=== PATIENT | female | born 2000 | race Caucasian/White ===

== ENCOUNTER 2021-06-24 22:45 | Inpatient (IN) | payer OTHER, SELFPAY ==
[2021-06-24 23:10] VITALS: BMI 40.3
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
[2021-06-25 09:57] VITALS: BP 107/57; PULSE 70; TEMP 35.8; O2SAT 100
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
[2021-06-26 08:28] LABS: MANUAL DIFF FLAG NO
[2021-06-26 08:34] LABS: Basophils Percent Auto 0.2 % (0-2); Eosinophils Absolute Auto 0.2 X10*3/uL (0.0-0.4); Eosinophils Percent Auto 2.2 % (0-4); Hematocrit 36.2 % (37-47); Hemoglobin 11.5 g/dl (12.0-16.0); Imm Gran Abs Auto 0.03 X10*3/uL (0.00-0.03); Imm Gran Pct Auto 0.3 % (0.0-0.4); Lymphocytes Absolute Auto 2.9 X10*3/uL (1.2-4.9); Lymphocytes Percent Auto 33.4 % (20-40); Mean Corpuscular HGB Conc 31.8 g/dl (31.0-35.0); Mean Corpuscular Hemoglobin 25.9 pg (27.0-33.0); Mean Corpuscular Volume 81.5 fL (80-98); Monocytes Absolute Auto 0.6 X10*3/uL (0.1-1.2); Monocytes Percent Auto 6.4 % (2-11); Neutrophils Absolute Auto 5.1 X10*3/uL (2.0-8.3); Neutrophils Percent Auto 57.5 % (45-73); Red Blood Count 4.44 X10*6/uL (4.20-5.50); Red Cell Distribution Width 15.5 % (11.0-16.0); White Blood Count 8.8 X10*3/uL (4.8-10.8)
[2021-06-26 08:46] LABS: Alanine Aminotransferase 10 U/L (0-31); Albumin Level 4.2 g/dL (3.5-5.0); Alkaline Phosphatase 68 U/L (39-117); Anion Gap 12 (12-20); Aspartate Amino Transferase 16 U/L (5-31); Bilirubin Total 0.2 mg/dL (0.0-1.0); Blood Urea Nitrogen 14 mg/dL (9-16); Calcium 9.3 mg/dL (8.4-10.2); Carbon Dioxide 25 mmol/L (22-29); Chloride 107 mmol/L (96-108); Creatinine Clr Calc Pharmacy 138.5; Estimated Glomerular Filt Rate > 60; Glucose Random 103 mg/dL (60-115); Potassium 4.6 mmol/L (3.3-5.1); Sodium 139 mmol/L (135-145); Total Protein 6.7 g/dL (6.5-8.0)
[2021-06-26 08:53] LABS: Platelet Count 162 X10*3/uL (160-400)
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
--- NOTE | 2021-06-26 10:20 | PM.EVENT ---
Event Note Date of Service: 06/26/21 Event Note: Went to see the patient. She refused to speak with me and did not want to be examined. She stated you are annoying me, leave me alone Please re-consult if patient willing to participate in interview and exam.
[2021-06-26] MEDS: Acetaminophen 325 MG TABLET 650 MG PO (15:28)
[2021-06-26] MEDS: Melatonin 3 MG TABLET PO (19:59)
[2021-06-27 06:00] VITALS: BP 122/66; PULSE 67; RESP 16; TEMP 36.4; O2SAT 99
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
[2021-06-27 20:00] VITALS: BP 111/55; PULSE 61; TEMP 36.2
[2021-06-27] MEDS: Melatonin 3 MG TABLET PO (20:09)
[2021-06-27] MEDS: OLANZapine 5 MG TABLET PO (20:09)
[2021-06-27] MEDS: Divalproex Sodium 500 MG TABLET.DR PO (20:10)
[2021-06-28] MEDS: Divalproex Sodium 500 MG TABLET.DR PO ×2 (09:56→20:15)
--- NOTE | 2021-06-28 13:00 | HO.PSYCHPN ---
Subjective Subjective Date of Service: 06/28/21 Reason For Visit: Mood swings Subjective Notes: 3 Day Interim History: Pt standing in doorway- appear internally preoccupied - didn't get breakfast feeling hungry - feels meds are ok nursing reports that pt frequently responding to internal stimuli denies si, denies s/e of medication tends to be irritable and reactive- Medication Compliance: Yes Side effects from medications: No Review of Systems Review of Systems Yes all other systems are reviewed and are negative Mental Status Exam Mental Status Exam Patient Appearance: Disheveled and Unkempt Patient Orientation: Person and Place Level of Consciousness: Awake Patient Behavior: Passive, Distractible and Poor Eye Contact Mood Description: Constricted Affect Description: Blunted Patient Cognition Impaired: No Ability to Follow Directions: Fair Speech Pattern: Monotone Thought Process: Slowed Thinking Thought Content: positive for Thought Blocking Depressive Symptoms: Increased Irritability Judgement: Poor Diagnostics Vital Signs (24Hr): Vital Signs - 24 hr 06/27/21 20:00 Temperature 97.1 F Pulse Rate 61 Blood Pressure 111/55 L Body Mass Index 40.3 Labs Results: 06/26/21 08:20 06/26/21 08:20 Medications Medications Current Medications Acetaminophen (Acetaminophen 325 Mg Tablet) 650 mg PO Q6H PRN PRN Reason: Headache/Pain Mild Scale (1-3) Last Admin: 06/26/21 15:28 Dose: 325 mg Documented by: Al Hydroxide/Mg Hydroxide (Magnesium Hydrox/Alum Hydrox 30 Ml Oral.Susp) 30 ml PO Q6H PRN PRN Reason: Heartburn/Nausea Divalproex Sodium (Divalproex Sodium 500 Mg Tablet.) 500 mg PO BID JOSE Last Admin: 06/28/21 09:56 Dose: 500 mg Documented by: Haloperidol (Haloperidol 5 Mg Tablet) 5 mg PO Q4H PRN PRN Reason: Psychosis/agitation Hydroxyzine HCl (Hydroxyzine Hcl 25 Mg Tablet) 25 mg PO BEDTIME PRN PRN Reason: Anxiety Lorazepam (Lorazepam 1 Mg Tablet) 1 mg PO Q4H PRN PRN Reason: anxiety/restlessness Magnesium Hydroxide (Milk Of Magnesia 30 Ml Oral.Susp) 30 ml PO DAILY PRN PRN Reason: Constipation Melatonin (Melatonin 3 Mg Tablet) 3 mg PO BEDTIME MRX1 PRN PRN Reason: Insomnia Last Admin: 06/27/21 20:09 Dose: 3 mg Documented by: Olanzapine (Olanzapine 5 Mg Tablet) 5 mg PO BEDTIME JOSE Last Admin: 06/27/21 20:09 Dose: 5 mg Documented by: Trazodone HCl (Trazodone Hcl 50 Mg Tablet) 50 mg PO BEDTIME PRN PRN Reason: Insomnia Allergies Allergies Allergy/AdvReac Type Severity Reaction Status Date / Time No Known Allergies Allergy Verified 06/24/21 23:11 Assessment & Plan Assessment & Plan (1) Bipolar disorder with psychotic features: Status: Acute Code(s): F31.9 - Bipolar disorder, unspecified Assessment and Plan: seesm more schizoaffective disorder Assessment and Plan: Ms. Rowe is a 21 year-old woman who appears to have disorganzied thoughts, responding to internal stimuli inc olanzapine 7.5mg Greater than 50% of the session was spent on counseling and/or coordination of care Patient educated on: medication risk/benefits Informed Consent: further education needed Reason for contiued inpatient stay Substantial Risk for: rapid decompensation
[2021-06-28] MEDS: OLANZapine 7.5 MG TABLET PO (20:11)
[2021-06-29 06:00] VITALS: BP 120/88; PULSE 100; RESP 16; TEMP 36.7; O2SAT 96
[2021-06-29] MEDS: Divalproex Sodium 500 MG TABLET.DR PO ×2 (09:39→19:09)
--- NOTE | 2021-06-29 11:37 | P.PNPSI_ITS ---
Subjective Subjective Date of Service: 06/29/21 Reason For Visit: Mood swings Subjective Notes: 3 Day Interim History: Pt sitting in yusuf - odd affect - Medication Compliance: Yes Side effects from medications: No Attending Groups: No Review of Systems Acute medical concerns: No Medical Review of Systems: unchanged Review of Systems Review of Systems Yes all other systems are reviewed and are negative Mental Status Exam Mental Status Exam Patient Appearance: Unkempt Patient Orientation: Person and Place Level of Consciousness: Awake Patient Behavior: Passive, Distractible and Good Eye Contact Mood Description: Constricted Affect Description: Blunted Patient Cognition Impaired: No Ability to Follow Directions: Fair Speech Pattern: Monotone Thought Process: Slowed Thinking Thought Content: positive for Thought Blocking Depressive Symptoms: Increased Irritability Judgement: Poor Diagnostics Vital Signs (24Hr): Vital Signs - 24 hr 06/29/21 06:00 Temperature 98.0 F Pulse Rate 100 Respiratory Rate 16 Blood Pressure 120/88 Pulse Oximetry 96 Body Mass Index 40.3 Labs Results: 06/26/21 08:20 06/26/21 08:20 Medications Medications Current Medications Acetaminophen (Acetaminophen 325 Mg Tablet) 650 mg PO Q6H PRN PRN Reason: Headache/Pain Mild Scale (1-3) Last Admin: 06/26/21 15:28 Dose: 325 mg Documented by: Al Hydroxide/Mg Hydroxide (Magnesium Hydrox/Alum Hydrox 30 Ml Oral.Susp) 30 ml PO Q6H PRN PRN Reason: Heartburn/Nausea Divalproex Sodium (Divalproex Sodium 500 Mg Tablet.Dr) 500 mg PO BID [facility] Last Admin: 06/29/21 09:39 Dose: 500 mg Documented by: Haloperidol (Haloperidol 5 Mg Tablet) 5 mg PO Q4H PRN PRN Reason: Psychosis/agitation Hydroxyzine HCl (Hydroxyzine Hcl 25 Mg Tablet) 25 mg PO BEDTIME PRN PRN Reason: Anxiety Lorazepam (Lorazepam 1 Mg Tablet) 1 mg PO Q4H PRN PRN Reason: anxiety/restlessness Magnesium Hydroxide (Milk Of Magnesia 30 Ml Oral.Susp) 30 ml PO DAILY PRN PRN Reason: Constipation Melatonin (Melatonin 3 Mg Tablet) 3 mg PO BEDTIME MRX1 PRN PRN Reason: Insomnia Last Admin: 06/27/21 20:09 Dose: 3 mg Documented by: Olanzapine (Olanzapine 7.5 Mg Tablet) 7.5 mg PO BEDTIME [facility] Last Admin: 06/28/21 20:11 Dose: 7.5 mg Documented by: Trazodone HCl (Trazodone Hcl 50 Mg Tablet) 50 mg PO BEDTIME PRN PRN Reason: Insomnia Allergies Allergies Allergy/AdvReac Type Severity Reaction Status Date / Time No Known Allergies Allergy Verified 06/24/21 23:11 Assessment & Plan Assessment & Plan (1) Bipolar disorder with psychotic features: Status: Acute Code(s): F31.9 - Bipolar disorder, unspecified Assessment and Plan: seems more schizoaffective disorder Assessment and Plan: continue olanzapine 7.5mg qhs continue depakote Greater than 50% of the session was spent on counseling and/or coordination of c are Patient educated on: medication risk/benefits Informed Consent: further education needed Reason for contiued inpatient stay Substantial Risk for: rapid decompensation
[2021-06-29 16:34] VITALS: RESP 18
[2021-06-29] MEDS: Melatonin 3 MG TABLET PO (19:09)
[2021-06-29] MEDS: OLANZapine 7.5 MG TABLET PO (19:09)
[2021-06-30] MEDS: Divalproex Sodium 500 MG TABLET.DR PO (08:54)
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
[2021-06-30 10:54] LABS: Valproate 103.2 mcg/mL (50.0-100.0)
--- NOTE | 2021-06-30 15:41 | P.PNPSI_ITS ---
Subjective Subjective Date of Service: 06/30/21 Reason For Visit: Mood swings Subjective Notes: Conditional Voluntary Healthcare Proxy: No Guardianship: No Medical Problems Affecting Mental Status: No Interim History: Pt planning discharge today. She reports she is feeling prepared. Reports sleep and appetite are intact, Reports medications to be helpful and without SE and has no current questions regarding her care thus far, medications, or SE. She states her hospitalization was helpful, but I could not stay here for a long time because I would get bored. [facility] [place] [facility] willing to [facility] initial prescriptions and these were re-sent to [facility]. Medication Compliance: Yes Side effects from medications: No Attending Groups: Yes Review of Systems Acute medical concerns: No Medical Review of Systems: unchanged Review of Systems Psychiatric: Reports no additional psychiatric complaints Mental Status Exam Mental Status Exam Patient Appearance: Appropriate Patient Orientation: Person, Place, Time and Situation Level of Consciousness: Alert Patient Behavior: Appropriate, Talkative, Cooperative and Good Eye Contact Mood Description: Apprehensive Affect Description: Constricted Patient Cognition Impaired: No Ability to Follow Directions: Good Speech Pattern: Spontaneous Speech Memory Description: Intact Hallucinations: None Delusions: Not Present Thought Process: Intact Thought Content: positive for Intact Judgement: Good Diagnostics Vital Signs (24Hr): Vital Signs - 24 hr 06/29/21 16:34 Respiratory Rate 18 Body Mass Index 40.3 Labs Results: 06/26/21 08:20 06/26/21 08:20 Labs: Laboratory Results - last 48 hr 06/30/21 09:45 Valproic Acid 103.2 H Medications Allergies Allergies Allergy/AdvReac Type Severity Reaction Status Date / Time No Known Allergies Allergy Verified 06/24/21 23:11 Assessment & Plan Assessment & Plan (1) Bipolar disorder with psychotic features: Status: Acute Code(s): F31.9 - Bipolar disorder, unspecified Assessment and Plan: Discharge today Continue current regime. Greater than 50% of the session was spent on counseling and/or coordination of care Patient educated on: diagnosis and therapeutic strategies Informed Consent: understands Reason for contiued inpatient stay Substantial Risk for: stable for discharge
== END 2021-06-30 13:40 | disposition home or self-care (01) | DRG 753 ==
PROVIDERS: Admitting Provider Psychiatry & Neurology Psychiatry; Visit Provider Social Worker
DX: F31.9 Bipolar disorder, unspecified (principal); Z79.899 Other long term (current) drug therapy
CPT/HCPCS: 36415; 80053; 80164; 85025